=== PATIENT | female | born 1945 | race Caucasian/White ===

== ENCOUNTER → 2016-06-20 | Outpatient (CLI) | payer MEDICARE, OTHER ==
[~2016-06-20] MED LIST: AMBIEN10 MG PO; ATIVAN1 MG PO; CEFPODOXIME PR200 MG PO; ELAVIL 50 MG TA50 MG PO; IPRAT-ALBUT 0.5-3 ML INH; LASIX20 MG PO; LEVAQUIN500 MG PO; LEVOTHYROXINE112 MCG PO; LISINOPRIL5 MG PO; LOPRESSOR50 MG PO; NORVASC 5 MG TAB5 MG PO; PREDNISONE20 MG PO; PRILOSEC OTC20 MG PO; SERTRALINE HCL50 MG PO; SIMVASTATIN40 MG PO; TRAMADOL HCL50 MG PO; VENTOLIN/PROVE0.5 ML INH; ZANAFLEX4 MG PO; ZOFRAN ODT 4 MG4 MG PO
== END ==
LOC: HEART 5 10:50
DX: I48.0 Paroxysmal atrial fibrillation (principal)

== ENCOUNTER → 2016-07-28 | Outpatient (CLI) | payer MEDICARE, OTHER | LOC: SLEEP 21:30 | DX: G47.33 Obstructive sleep apnea (adult) (pediatric) (principal) | CPT/HCPCS: 95810 ==

== ENCOUNTER → 2020-06-12 | Outpatient (CLI) | payer MEDICARE ==
[~2020-06-12] MED LIST changes: +AMITRIPTYLINE H25 MG PO; +AZULFIDINE 500500 MG PO; +BETAPACE 80MG T80 MG PO; +BUSPIRONE HCL10 MG PO; +CARDIZEM CD360 MG PO; +CARTIA XT300 MG PO; +CEFUROXIME250 MG PO; +CYMBALTA 30 MG30 MG PO; +ELIQUIS5 MG PO; +FERROUS GLUCON324 M1 PO; +HYDRALAZINE HCL25 MG PO; +IPRAT-ALBUT 0.5-3 ML NEB; +LEVOTHYROXINE125 MC1 PO; +LIPITOR20 MG PO; +MORPHINE SULFAT15 M2 PO; +MS CONTIN TAB S15 MG PO; +ORENCIA125 MG/1 M INJ; +PLAQUENIL 200200 MG PO; +PREDNISONE2.5 MG PO; +PROLIA INJ60 MG/1 ML INJ; +PROTONIX40 MG PO; +RAMELTEON8 MG PO; +SOTALOL80 MG PO; +VITAMIN D350 MC3 PO; +ZOLOFT50 MG PO
[2020-06-12 12:48] LABS: RED BLOOD COUNT 3.58 M/UL (4.00-5.10); WHITE BLOOD COUNT 9.4 K/UL (4.5-11.0)
[2020-06-12 13:13] LABS: BUN/CREATININE RATIO 22 (0-10)
== END ==
LOC: OPSV2 11:24
PROVIDERS: Orthopaedic Surgery
DX: Z01.818 Encounter for other preprocedural examination (principal); S61.502A Unspecified open wound of left wrist, initial encounter; Z98.890 Other specified postprocedural states; R94.31 Abnormal electrocardiogram [ECG] [EKG]; Z20.822 Contact with and (suspected) exposure to COVID-19
CPT/HCPCS: 80048; 85025; 85652; 86140; 87081; 93005; U0003

== ENCOUNTER 2020-06-15 09:58 | Inpatient (IN) | payer MEDICARE, OTHER ==
[~2020-06-15] VITALS: Ht 160 cm; Wt 65.4 kg
[~2020-06-15 09:58] MED LIST changes: -BETAPACE 80MG T80 MG PO; -CARDIZEM CD360 MG PO; -CEFUROXIME250 MG PO; -FERROUS GLUCON324 M1 PO; -IPRAT-ALBUT 0.5-3 ML NEB; -MS CONTIN TAB S15 MG PO; -ZOLOFT50 MG PO
[2020-06-15] MEDS ORDERED: ZOLOFT50 MG PO (10:57)
[2020-06-16 04:48] LABS: HEMOGLOBIN 7.1 gm/dl (12.3-15.3); WHITE BLOOD COUNT 8.5 K/UL (4.5-11.0)
[2020-06-16 04:54] LABS: RED BLOOD COUNT 3.18 M/UL (4.00-5.10)
[2020-06-16 05:00] LABS: BUN/CREATININE RATIO 23 (0-10)
[2020-06-16 13:24] LABS: HEMOGLOBIN 6.9 gm/dl (12.3-15.3)
[2020-06-17 08:04] LABS: HEMOGLOBIN 7.8 gm/dl (12.3-15.3); RED BLOOD COUNT 3.34 M/UL (4.00-5.10); WHITE BLOOD COUNT 9.1 K/UL (4.5-11.0)
[2020-06-17 08:10] LABS: BUN/CREATININE RATIO 34 (0-10)
[2020-06-18 03:58] LABS: RED BLOOD COUNT 3.85 M/UL (4.00-5.10); WHITE BLOOD COUNT 11.9 K/UL (4.5-11.0)
[2020-06-18 04:16] LABS: BUN/CREATININE RATIO 24 (0-10)
[2020-06-19 08:43] LABS: HEMOGLOBIN 9.3 gm/dl (12.3-15.3); RED BLOOD COUNT 3.93 M/UL (4.00-5.10); WHITE BLOOD COUNT 10.4 K/UL (4.5-11.0)
[2020-06-19 09:07] LABS: BUN/CREATININE RATIO 18 (0-10)
[2020-06-19] MEDS ORDERED: BETAPACE 80MG T80 MG PO (09:33)
[2020-06-19] MEDS ORDERED: CARDIZEM CD360 MG PO (09:33)
[2020-06-19] MEDS ORDERED: CEFUROXIME250 MG PO (09:33)
[2020-06-19] MEDS ORDERED: IPRAT-ALBUT 0.5-3 ML NEB (09:56)
[2020-06-19] MEDS ORDERED: FERROUS GLUCON324 M1 PO (09:56)
[2020-06-19] MEDS ORDERED: MS CONTIN TAB S15 MG PO (09:56)
--- NOTE | 2020-06-19 10:22 | NUR ---
PT GOT UP TO THE TOILET AND HR WENT UP TO 160S. NOTIFIED .
--- NOTE | 2020-06-19 10:58 | NUR ---
TOLD PT THAT IT MAY TAKE A LITTLE WHILE FOR THE NEW DOSE OF [employer]AP[employer] TO BEGIN TO WORK APPROPRIATELY. STATED THAT PT COULD EXPECT TO SEE A FLUCTUATION IN HR RATE.
--- NOTE | 2020-06-19 11:48 | NUR ---
PT HR RISING TO 160S WHEN WALKING TO THE RESTROOM. MD ORDERED 10MG CARDIZEM IVP AND STAT ECHO.
[2020-06-20 12:21] LABS: HEMOGLOBIN 9.8 gm/dl (12.3-15.3); RED BLOOD COUNT 4.15 M/UL (4.00-5.10); WHITE BLOOD COUNT 9.9 K/UL (4.5-11.0)
[2020-06-20 12:43] LABS: BUN/CREATININE RATIO 21 (0-10)
[2020-06-22] MEDS ORDERED: CEFUROXIME250 MG PO (08:42)
--- NOTE | 2020-06-22 12:20 | NUR ---
FLU VACCINE NOT GIVEN R/T PATIENT STATED SHE HAS TAKEN DEC/JAN 2020.
--- NOTE | 2020-06-22 14:03 | NUR ---
PATIENT REFUSED PAIN MEDICINE.
== END 2020-06-22 14:05 | DRG 496 ==
LOC: OR 09:58 → M/S 18:32 → OR 06-16 13:35 → M/S 06-22 14:05
PROVIDERS: Internal Medicine; Nurse Practitioner Family; Physician Assistant; ADMIT Orthopaedic Surgery
PROC: 0RGP0KZ Fusion of Left Wrist Joint with Nonautologous Tissue Substitute, Open Approach (ICD-10-PCS; 2020-06-15)
PROC: 0RPP0JZ Removal of Synthetic Substitute from Left Wrist Joint, Open Approach (ICD-10-PCS; principal; 2020-06-15 13:45)
DX: T84.028A Dislocation of other internal joint prosthesis, initial encounter (principal); J96.11 Chronic respiratory failure with hypoxia; I48.91 Unspecified atrial fibrillation; M06.9 Rheumatoid arthritis, unspecified; J44.9 Chronic obstructive pulmonary disease, unspecified; I10 Essential (primary) hypertension; E07.9 Disorder of thyroid, unspecified; M19.90 Unspecified osteoarthritis, unspecified site; I51.9 Heart disease, unspecified; J98.4 Other disorders of lung; N28.9 Disorder of kidney and ureter, unspecified; H91.90 Unspecified hearing loss, unspecified ear; E03.9 Hypothyroidism, unspecified; M81.0 Age-related osteoporosis without current pathological fracture; R33.9 Retention of urine, unspecified; D53.9 Nutritional anemia, unspecified; Z96.632 Presence of left artificial wrist joint; Z20.822 Contact with and (suspected) exposure to COVID-19; Z96.631 Presence of right artificial wrist joint; Z83.3 Family history of diabetes mellitus; Z98.42 Cataract extraction status, left eye; Z98.41 Cataract extraction status, right eye; Z82.49 Family history of ischemic heart disease and other diseases of the circulatory system; Z88.8 Allergy status to other drugs, medicaments and biological substances; Z87.891 Personal history of nicotine dependence; Z85.72 Personal history of non-Hodgkin lymphomas
CPT/HCPCS: ECHO; 36415; 36430; 71045; 73110; 76000; 80048; 80053; 81001; 82728; 83540; 83550; 83735; 85014; 85018; 85025; 85027; 85652; 86140; 86850; 86900; 86901; 86920; 87070; 87205; 93005; 93306; 94640; 94760; 97110-GP-CQ; 97162; 97167; 97530; 97530-GP-CQ; C1713; C1762; J0690; J1100; J1160; J1756; J2001; J2270; J2405; J2704; J2795; J3475; J7050; J7120; P9016; U0002